=== PATIENT | male | born 1955 | race Caucasian/White ===

== ENCOUNTER 2021-06-20 17:22 | Emergency (ER) | payer MEDICARE, BC ==
[~2021-06-20] VITALS: Ht 182.9 cm; Wt 86.2 kg
[2021-06-20] MEDS ORDERED: OMEPRAZOLE (17:35)
--- NOTE | 2021-06-20 17:46 | NUR ---
[email or web address], medical screening exam in progress
[2021-06-20] MEDS ORDERED: CLIN300C12 PO (18:12)
[2021-06-20] MEDS ORDERED: MUPI22OI2 TP (18:19)
--- NOTE | 2021-06-20 18:19 | NUR ---
Patient discharged to home in stable condition with brisk steady gait. Written and verbal after care instructions given to patient. Patient verbalized understanding and compliance of instructions. Stressed follow up with primary doctor or return to ER for worsening s/s.
== END 2021-06-20 18:22 | disposition home or self-care (01) ==
LOC: ER 17:31
DX: L03.116 Cellulitis of left lower limb (principal); S80.812A Abrasion, left lower leg, initial encounter; W01.198A Fall on same level from slipping, tripping and stumbling with subsequent striking against other object, initial encounter; Y93.H3 Activity, building and construction; Y92.018 Other place in single-family (private) house as the place of occurrence of the external cause; K29.70 Gastritis, unspecified, without bleeding; Z79.899 Other long term (current) drug therapy
CPT/HCPCS: A4663

== ENCOUNTER 2022-04-08 08:50 | Inpatient (IN) | payer MEDICARE, BC ==
[~2022-04-08] VITALS: Ht 182.9 cm; Wt 77.1 kg
[~2022-04-08 08:50] MED LIST: CLIN300C12 PO; MUPI22OI2 TP; OMEPRAZOLE
[2022-04-08] MEDS ORDERED: meloxicam PO (09:08)
[2022-04-08] MEDS ORDERED: IBUPROFEN 400 MG TABLET PO ONE (09:15)
[2022-04-08] MEDS ORDERED: ACETAMINOPHEN 325 MG TABLET PO ONE (09:15)
[2022-04-08] MEDS ORDERED: TDAP DIPH,PERTUSS,TET VAC/PF 0.5 ML DISP.SYRIN IM ONE ×2 (09:15→09:20)
[2022-04-08] MEDS ORDERED: IBUPROFEN 400 MG TABLET ONE (09:20)
[2022-04-08] MEDS ORDERED: ACETAMINOPHEN 325 MG TABLET ONE (09:20)
[2022-04-08] MEDS ORDERED: LIDOCAINE 2%-EPI 1:100,000 20 ML VIAL IJ ONE (09:45)
[2022-04-08] MEDS ORDERED: LIDOCAINE 1%-EPI 1:100,000 20 ML VIAL ONE (09:49)
[2022-04-08] MEDS ORDERED: LIDOCAINE HCL 1% 20 ML VIAL ONE (09:49)
[2022-04-08] MEDS ORDERED: LIDOCAINE 2%-EPI 1:100,000 20 ML VIAL ONE (10:27)
[2022-04-08] MEDS ORDERED: GENTAMICIN SULFATE 20 MG/2 ML VIAL IV ONE (11:00)
[2022-04-08] MEDS ORDERED: CEFAZOLIN 2 G in IV DEXTROSE 5% 100 ML IV ONE (11:00)
--- NOTE | 2022-04-08 11:27 | NUR ---
"Plan to admit" per Dr Mendez. ER registration/admitting staff Wallace and Ralf notified. Nursing supervisor engines road Kathleen notified re: we need medical-surgical floor bed & nurse for this patient.
--- NOTE | 2022-04-08 11:57 | NUR ---
"No available medical-surgical bed or nurse at this time." per nursing user support analyst supervisor Kathleen. Primary nurse Herminia notified.
[2022-04-08] MEDS ORDERED: GENTAMICIN SULFATE INJ 80 MG in IV DEXTROSE 5% 50 ML IV ONE (12:30)
[2022-04-08] MEDS ORDERED: ZOLPIDEM 5 MG TABLET PO PRN (16:30)
[2022-04-08] MEDS ORDERED: HYDROCODONE/APAP 5-325MG TABLET PO PRN (16:30)
[2022-04-08] MEDS ORDERED: REMEDY ESSENTIAL ZINC PASTE 113 GM TP PRN (16:30)
[2022-04-08] MEDS ORDERED: MAGNESIUM HYDROXIDE 30 ML LIQUID UDC PO PRN (16:30)
[2022-04-08] MEDS ORDERED: ONDANSETRON 4 MG/2 ML VIAL IV PRN (16:30)
[2022-04-08] MEDS ORDERED: ACETAMINOPHEN 325 MG TABLET PO PRN (16:30)
[2022-04-08] MEDS ORDERED: ONDANSETRON 4 MG/2 ML VIAL ONE (16:45)
[2022-04-08] MEDS ORDERED: MORPHINE SULFATE 2 MG/1 ML DISP.SYRIN ONE (16:45)
[2022-04-08] MEDS: MORPHINE SULFATE 2 MG/1 ML DISP.SYRIN IV PRN ×2 (16:55→22:10)
[2022-04-08 17:05] LABS: MEAN CORPUSCULAR HEMOGLOBIN 31.3 uug (23.8-33.4); MEAN CORPUSCULAR VOLUME 89.1 fL (73.0-96.2); PLATELET COUNT (AUTO) 230 K/uL (152-348)
[2022-04-08 17:20] LABS: CREATININE 0.9 mg/dL (0.6-1.3); POTASSIUM 3.8 mmol/L (3.5-5.1)
--- NOTE | 2022-04-08 21:16 | NUR ---
Pt. admitted to [facility] unit Room 307, under care of IMER Sinha. Belongs List completed.
--- NOTE | 2022-04-08 21:20 | NUR ---
Admitted from ER this 67y/o male, alert and oriented x 4, in no acute distress. Routine admission care done, initiated care plans. Oriented to room, bathroom, TV and call light. Needs assessed and attended to.
[2022-04-08] MEDS: DOCUSATE SODIUM 100 MG CAPSULE PO SCH (22:11)
[2022-04-08] MEDS ORDERED: CEFAZOLIN 1 G VIAL ONE (22:48)
[2022-04-08] MEDS: CEFAZOLIN 1 G in IV DEXTROSE 5% 50 ML IV SCH (23:00)
[2022-04-09 04:00] VITALS: BP 112/59
[2022-04-09] MEDS: MORPHINE SULFATE 2 MG/1 ML DISP.SYRIN IV PRN (04:42)
[2022-04-09] MEDS: CEFAZOLIN 1 G in IV DEXTROSE 5% 50 ML IV SCH (06:31)
[2022-04-09 08:15] LABS: HEMATOCRIT 36.5 % (36.7-47.1); MEAN CORPUSCULAR HEMOGLOBIN 31.1 uug (23.8-33.4); MEAN CORPUSCULAR VOLUME 89.3 fL (73.0-96.2); PLATELET COUNT (AUTO) 221 K/uL (152-348)
[2022-04-09] MEDS: DOCUSATE SODIUM 100 MG CAPSULE PO SCH (08:29)
[2022-04-09 08:44] LABS: CREATININE 0.9 mg/dL (0.6-1.3); MAGNESIUM 1.8 mg/dL (1.8-2.4); PHOSPHOROUS 3.8 mg/dL (2.5-4.9); POTASSIUM 3.9 mmol/L (3.5-5.1)
--- NOTE | 2022-04-09 11:00 | NUR ---
Med. po with norco 5/325 for c/o back pain with good effect after 45 minutes.
[2022-04-09] MEDS ORDERED: HYDR-3972 PO (11:20)
[2022-04-09] MEDS ORDERED: CLIN300C12 PO (11:23)
[2022-04-09 11:46] VITALS: BP 121/72
--- NOTE | 2022-04-09 12:00 | NUR ---
Prepared for discharge. IV dc'd. angiocath removed intact. Partner Denia at bedside to take him home.
--- NOTE | 2022-04-09 12:30 | NUR ---
Discharged via w/c, accompanied by Huyen Loza in auto. no c/o discomfort.
== END 2022-04-09 12:30 | disposition home or self-care (01) | DRG 563 ==
LOC: ER 08:50 → MEDSURG3 14:34
PROVIDERS: ADMIT Nurse Practitioner Acute Care; ATTEND Nurse Practitioner Acute Care
PROC: 0HQEXZZ Repair Left Lower Arm Skin, External Approach (ICD-10-PCS; principal; 2022-04-08)
DX: S52.022B Displaced fracture of olecranon process without intraarticular extension of left ulna, initial encounter for open fracture type I or II (principal); K21.9 Gastro-esophageal reflux disease without esophagitis; W01.0XXA Fall on same level from slipping, tripping and stumbling without subsequent striking against object, initial encounter; Y93.9 Activity, unspecified; Y92.009 Unspecified place in unspecified non-institutional (private) residence as the place of occurrence of the external cause; Z20.822 Contact with and (suspected) exposure to COVID-19; S51.012A Laceration without foreign body of left elbow, initial encounter; E78.5 Hyperlipidemia, unspecified
CPT/HCPCS: 36415; 73080; 73200; 83735; 84100; 85025; 90715; A4663; G0378; J0690; J1580; J2270; J2405; J3490